=== PATIENT | female | born 1960 | race African-American/Black ===

== ENCOUNTER 2022-05-31 04:43 | Inpatient (IN) | payer OTHER ==
[~2022-05-31] VITALS: Ht 167.6 cm; Wt 144.0 kg
[2022-05-31 05:43] LABS: Basophils # (auto) 0 10 ^3/uL (0-0.2); Basophils % (auto) 0.2 % (0.0-2.0); Eosinophils # (auto) 0 10 ^3/uL (0-0.8); Eosinophils % (auto) 0.1 % (0.0-7.0); Hematocrit 37.2 % (36.0-46.0); Hemoglobin 11.9 g/dL (12.2-16.2); Lymphocytes # (auto) 0.6 10 ^3/uL (0.4-5.4); Lymphocytes % (auto) 7.1 % (10.0-50.0); Mean Corpuscular Hemoglobin 26.1 pg (28.0-32.0); Mean Corpuscular Hgb Conc. 31.9 g/dL (32.0-36.0); Mean Corpuscular Volume 81.8 fL (80.0-100.0); Monocytes # (auto) 0.4 10 ^3/uL (0-1.3); Monocytes % (auto) 4.3 % (0.0-12.0); Neutrophils % (auto) 88.3 % (37.0-80.0); Red Blood Cells 4.54 10^6/uL (4.0-5.20); Red Cell Distribution Width 15.8 % (11.8-14.3); White Blood Cell 9.1 10^3/uL (4.4-10.8)
[2022-05-31] MEDS ORDERED: FUROSEMIDE 20 MG/2 ML VIAL IV ONE (05:45)
[2022-05-31 05:58] LABS: Albumin 3.5 g/dL (3.4-5.0); Calcium 9.3 mg/dL (8.5-10.1); Magnesium 2.1 mg/dL (1.6-2.6); Potassium 3.5 mmol/L (3.5-5.1)
[2022-05-31 06:04] LABS: Bilirubin, Total 0.9 mg/dL (0.2-1.0); Total Protein 7.3 g/dL (6.4-8.2)
[2022-05-31 06:13] LABS: INR 1.08 (0.9-1.15); Partial Thromboplastin Time 26.8 sec (24.6-33.4)
[2022-05-31] MEDS ORDERED: VANCOMYCIN 1GM/250ML 250 ML IV ONE (06:15)
[2022-05-31] MEDS ORDERED: PIPERACILLIN-TAZOB 3.375GM 100 ML IV ONE (06:15)
[2022-05-31 07:37] LABS: Urine Bacteria MANY /hpf (None Seen); Urine Blood 3+ /uL (Negative); Urine Hyaline Cast MOD /lpf (0 - 2); Urine Mucus FEW (None Seen); Urine Specific Gravity 1.016 (1.001-1.035); Urine WBC 4186 /hpf (0 - 5); Urine WBC Clumps PRESENT /hpf (None Seen)
[2022-05-31] MEDS ORDERED: FUROSEMIDE 40 MG/4 ML VIAL IV ONE (08:00)
[2022-05-31] MEDS ORDERED: IOHEXOL 350 MG/ML 100ML IJ ONE (09:21)
[2022-05-31] MEDS ORDERED: NITROGLYCERIN 0.4 MG SL TAB SL PRN (09:30)
[2022-05-31] MEDS ORDERED: LORazepam 0.5 MG TAB PO PRN (09:30)
[2022-05-31] MEDS ORDERED: HYDROcodone-ACET 5/325MG TAB PO PRN (09:30)
[2022-05-31] MEDS ORDERED: HYDROmorphone HCL 2 MG/ML VL/or syr IV PRN (09:30)
[2022-05-31] MEDS ORDERED: DOCUSATE SOD 100 MG CAP PO PRN (09:30)
[2022-05-31] MEDS ORDERED: ALUM & MAG HYDROX-SIMETH LIQ(MAALOX) 30 ML PO PRN (09:30)
[2022-05-31 10:03] VITALS: BP 149/82
[2022-05-31] MEDS ORDERED: ENOXAPARIN SOD 150 MG/1 ML SYRINGE SC ONE (10:15)
[2022-05-31] MEDS: levoFLOXacin 750MG 150 ML IV SCH (10:28)
[2022-05-31] MEDS: IPRATROPIUM BROM 0.5 MG/2.5ML INH SOL NEB SCH ×2 (11:49→18:36)
[2022-05-31] MEDS: LEVALBUTEROL HCL 1.25 MG/3 ML NEB NEB SCH ×2 (11:50→18:38)
[2022-05-31] MEDS ORDERED: ACETAMINOPHEN 650 mg PER 20.3 mL UD ONE (12:18)
[2022-05-31] MEDS: ACETAMINOPHEN 650 mg PER 20.3 mL UD PO PRN ×2 (12:27→21:03)
[2022-05-31] MEDS: SODIUM CHLOR 0.9% PF (SALINE LOCK) 10ML VIAL/SYR IV SCH ×2 (14:04→22:27)
[2022-05-31] MEDS: FUROSEMIDE 40 MG/4 ML VIAL IV SCH (18:03)
[2022-05-31] MEDS: MORPHINE SULFATE INJ 2 MG/ml SYRG IV PRN (21:07)
[2022-05-31] MEDS ORDERED: ACETAMINOPHEN 650 MG RECT SUPP PR ONE (21:30)
[2022-05-31] MEDS ORDERED: ACETAMINOPHEN 325 MG RECT SUPP PR ONE (21:42)
[2022-05-31] MEDS: ENOXAPARIN SOD 150 MG/1 ML SYRINGE SC SCH (22:35)
[2022-06-01] MEDS: IPRATROPIUM BROM 0.5 MG/2.5ML INH SOL NEB SCH ×4 (00:15→17:59)
[2022-06-01] MEDS: LEVALBUTEROL HCL 1.25 MG/3 ML NEB NEB SCH ×4 (00:15→17:59)
[2022-06-01] MEDS ORDERED: dilTIAZem 25 MG/5 ML VIAL IV ONE (05:30)
[2022-06-01 05:35] LABS: Basophils # (auto) 0 10 ^3/uL (0-0.2); Eosinophils # (auto) 0 10 ^3/uL (0-0.8); Hemoglobin 11.7 g/dL (12.2-16.2); Mean Corpuscular Volume 80.5 fL (80.0-100.0); Monocytes # (auto) 0.6 10 ^3/uL (0-1.3); Monocytes % (auto) 7.8 % (0.0-12.0); Neutrophils # (auto) 6.4 10 ^3/uL (1.6-8.6); Nucleated Red Blood Cells % 0.1 %
[2022-06-01 05:36] LABS: Basophils % (auto) 0.3 % (0.0-2.0); Hematocrit 36.9 % (36.0-46.0); Lymphocytes # (auto) 0.8 10 ^3/uL (0.4-5.4); Lymphocytes % (auto) 10.7 % (10.0-50.0); Mean Corpuscular Hemoglobin 25.5 pg (28.0-32.0); Mean Corpuscular Hgb Conc. 31.7 g/dL (32.0-36.0); Neutrophils % (auto) 81.2 % (37.0-80.0); Red Blood Cells 4.58 10^6/uL (4.0-5.20); Red Cell Distribution Width 15.5 % (11.8-14.3); White Blood Cell 7.8 10^3/uL (4.4-10.8)
[2022-06-01 05:47] LABS: Albumin 3.3 g/dL (3.4-5.0); Calcium 9.1 mg/dL (8.5-10.1); Magnesium 2.2 mg/dL (1.6-2.6)
[2022-06-01 05:52] LABS: BUN/Creatinine Ratio 12.1; Bilirubin, Total 1.1 mg/dL (0.2-1.0); Total Protein 7.3 g/dL (6.4-8.2)
[2022-06-01 05:57] LABS: Potassium 2.6 mmol/L (3.5-5.1)
[2022-06-01] MEDS: FUROSEMIDE 40 MG/4 ML VIAL IV SCH ×2 (06:00→18:13)
[2022-06-01] MEDS: SODIUM CHLOR 0.9% PF (SALINE LOCK) 10ML VIAL/SYR IV SCH ×3 (06:21→21:46)
[2022-06-01] MEDS: POTASSIUM CHL 20MEQ/100ML 100 ML IV SCH ×3 (07:02→23:44)
[2022-06-01] MEDS ORDERED: POTASSIUM CHL 20 Meq TABLET PO ONE (07:04)
[2022-06-01] MEDS ORDERED: ACETAMINOPHEN IV 1000 MG/100ML (10MG/ML) IV ONE (08:30)
[2022-06-01] MEDS: ENOXAPARIN SOD 150 MG/1 ML SYRINGE SC SCH ×2 (10:21→21:47)
[2022-06-01] MEDS: ONDANSETRON HCL 4 MG/2 ML VIAL IV PRN (10:22)
[2022-06-01] MEDS: levoFLOXacin 750MG 150 ML IV SCH (10:22)
[2022-06-01] MEDS: ACETAMINOPHEN 650 mg PER 20.3 mL UD PO PRN (20:12)
[2022-06-02] MEDS: POTASSIUM CHL 20MEQ/100ML 100 ML IV SCH (01:33)
[2022-06-02] MEDS ORDERED: LABETALOL HCL 5 MG/ML 4ML SYRINGE IV ONE (02:00)
[2022-06-02] MEDS: ACETAMINOPHEN 650 mg PER 20.3 mL UD PO PRN ×2 (02:39→10:14)
[2022-06-02] MEDS: IPRATROPIUM BROM 0.5 MG/2.5ML INH SOL NEB SCH ×4 (05:25→19:51)
[2022-06-02] MEDS: LEVALBUTEROL HCL 1.25 MG/3 ML NEB NEB SCH ×4 (05:25→19:51)
[2022-06-02] MEDS: SODIUM CHLOR 0.9% PF (SALINE LOCK) 10ML VIAL/SYR IV SCH ×3 (05:32→21:02)
[2022-06-02] MEDS: FUROSEMIDE 40 MG/4 ML VIAL IV SCH ×2 (05:53→18:29)
[2022-06-02 06:31] LABS: Basophils # (auto) 0 10 ^3/uL (0-0.2); Eosinophils # (auto) 0 10 ^3/uL (0-0.8); Monocytes # (auto) 0.6 10 ^3/uL (0-1.3); Neutrophils # (auto) 3.7 10 ^3/uL (1.6-8.6); Nucleated Red Blood Cells % 0.1 %; Red Cell Distribution Width 15.7 % (11.8-14.3); White Blood Cell 5.4 10^3/uL (4.4-10.8)
[2022-06-02 06:34] LABS: Basophils % (auto) 0.2 % (0.0-2.0); Eosinophils % (auto) 0.4 % (0.0-7.0); Hematocrit 34.9 % (36.0-46.0); Hemoglobin 11.3 g/dL (12.2-16.2); Lymphocytes % (auto) 18.2 % (10.0-50.0); Mean Corpuscular Hemoglobin 26.7 pg (28.0-32.0); Mean Corpuscular Hgb Conc. 32.3 g/dL (32.0-36.0); Mean Corpuscular Volume 82.6 fL (80.0-100.0); Monocytes % (auto) 11.9 % (0.0-12.0); Neutrophils % (auto) 69.3 % (37.0-80.0); Red Blood Cells 4.23 10^6/uL (4.0-5.20)
[2022-06-02 06:47] LABS: Anion Gap 8 (5-15); Blood Urea Nitrogen 12 mg/dL (7-18); Calcium 8.7 mg/dL (8.5-10.1); Carbon Dioxide 29 mmol/L (21-32); Chloride 101 mmol/L (98-107); GFR African American 93 mL/min; GFR Non-African American 77 mL/min; Glucose 90 mg/dL (74-106); Magnesium 2.1 mg/dL (1.6-2.6); Potassium 3.1 mmol/L (3.5-5.1); Sodium 138 mmol/L (136-145)
[2022-06-02] MEDS: levoFLOXacin 750MG 150 ML IV SCH (10:13)
[2022-06-02] MEDS: ENOXAPARIN SOD 150 MG/1 ML SYRINGE SC SCH (10:13)
[2022-06-02] MEDS: SPIRONOLACTONE 25 MG TAB PO SCH (13:45)
[2022-06-02] MEDS ORDERED: POTASSIUM CHL 20 Meq TABLET PO ONE (14:45)
[2022-06-02] MEDS: ONDANSETRON HCL 4 MG/2 ML VIAL IV PRN (15:34)
[2022-06-02] MEDS: MORPHINE SULFATE INJ 2 MG/ml SYRG IV PRN (15:34)
[2022-06-02 22:00] VITALS: BP 165/95
[2022-06-02] MEDS ORDERED: CYCL-611 PO (22:03)
[2022-06-02] MEDS ORDERED: CELE1CAP8 PO (22:03)
[2022-06-02] MEDS ORDERED: FURO40TA4 PO (22:03)
[2022-06-02] MEDS ORDERED: CARV12.544 PO (22:03)
[2022-06-02] MEDS ORDERED: SIMV-8 PO (22:03)
[2022-06-02] MEDS ORDERED: MELO1TAB56 PO (22:03)
[2022-06-02] MEDS ORDERED: TRAM50TA2 PO (22:03)
[2022-06-02] MEDS ORDERED: ISOS1TAB28 PO (22:03)
[2022-06-02] MEDS ORDERED: BUME2TAB5 PO (22:03)
[2022-06-02] MEDS ORDERED: ONDA-180 PO (22:04)
[2022-06-02] MEDS ORDERED: POTA1TAB64 (22:04)
[2022-06-02] MEDS ORDERED: CHOL50007 PO (22:04)
[2022-06-02] MEDS ORDERED: NIT01P TOP (22:04)
[2022-06-03] MEDS: LEVALBUTEROL HCL 1.25 MG/3 ML NEB NEB SCH ×4 (00:32→18:58)
[2022-06-03] MEDS: IPRATROPIUM BROM 0.5 MG/2.5ML INH SOL NEB SCH ×4 (00:32→18:58)
[2022-06-03 05:00] VITALS: BP 154/85
[2022-06-03] MEDS: FUROSEMIDE 40 MG/4 ML VIAL IV SCH ×2 (05:56→18:27)
[2022-06-03] MEDS: SODIUM CHLOR 0.9% PF (SALINE LOCK) 10ML VIAL/SYR IV SCH ×3 (05:56→22:00)
[2022-06-03 06:22] LABS: BUN/Creatinine Ratio 13.3; Calcium 9.1 mg/dL (8.5-10.1); Potassium 3.1 mmol/L (3.5-5.1)
[2022-06-03] MEDS ORDERED: POTASSIUM CHL 20 Meq TABLET PO ONE ×2 (07:30→11:30)
[2022-06-03 08:44] VITALS: BP 154/85
[2022-06-03 09:00] VITALS: BP 160/91
[2022-06-03] MEDS: levoFLOXacin 750MG 150 ML IV SCH (10:08)
[2022-06-03] MEDS: SPIRONOLACTONE 25 MG TAB PO SCH (10:08)
[2022-06-03 13:00] VITALS: BP 139/85
[2022-06-03 17:09] VITALS: BP 162/105
[2022-06-03 22:00] VITALS: BP 160/96
[2022-06-04] MEDS: LEVALBUTEROL HCL 1.25 MG/3 ML NEB NEB SCH ×4 (00:30→18:48)
[2022-06-04] MEDS: IPRATROPIUM BROM 0.5 MG/2.5ML INH SOL NEB SCH ×4 (00:31→18:48)
[2022-06-04 05:00] VITALS: BP 156/93
[2022-06-04 06:01] LABS: BUN/Creatinine Ratio 12.4; Calcium 9.6 mg/dL (8.5-10.1); Potassium 3.3 mmol/L (3.5-5.1)
[2022-06-04] MEDS: SODIUM CHLOR 0.9% PF (SALINE LOCK) 10ML VIAL/SYR IV SCH ×2 (06:34→15:06)
[2022-06-04] MEDS: FUROSEMIDE 40 MG/4 ML VIAL IV SCH ×2 (06:34→18:00)
[2022-06-04 07:30] VITALS: BP 156/93
[2022-06-04 09:00] VITALS: BP_SYST 145; BP_SYST 177; BP_DIAS 105
[2022-06-04] MEDS: SPIRONOLACTONE 25 MG TAB PO SCH (09:24)
[2022-06-04] MEDS: levoFLOXacin 750MG 150 ML IV SCH (09:24)
[2022-06-04 13:00] VITALS: BP 169/105
[2022-06-04] MEDS ORDERED: SPIR50TA2 PO (14:54)
[2022-06-04] MEDS ORDERED: CIPR-173 PO (14:54)
[2022-06-04 16:06] VITALS: BP 156/93
== END 2022-06-04 18:00 | disposition home or self-care (01) | DRG 280 ==
LOC: EDBD 04:43 → ER 04:43 → TELE 09:34 → TELE-CENTR 06-02 18:50
PROVIDERS: ADMIT Internal Medicine; ATTEND Internal Medicine Geriatric Medicine
DX: I21.4 Non-ST elevation (NSTEMI) myocardial infarction (principal); I50.43 Acute on chronic combined systolic (congestive) and diastolic (congestive) heart failure; J96.01 Acute respiratory failure with hypoxia; N39.0 Urinary tract infection, site not specified; Z68.44 Body mass index [BMI] 60.0-69.9, adult; J98.11 Atelectasis; R31.9 Hematuria, unspecified; R79.89 Other specified abnormal findings of blood chemistry; Z20.822 Contact with and (suspected) exposure to COVID-19; E66.01 Morbid (severe) obesity due to excess calories; E87.6 Hypokalemia; Z91.14 Patient's other noncompliance with medication regimen
CPT/HCPCS: 36415; 36600; 71045; 80048; 80053; 81001; 82805; 83036; 83605; 83735; 83880; 84132; 84443; 84484; 85025; 85379; 85610; 85730; 93005; 93306; 93970; 94640; 96365; 96366; 96367; 96368; 96372; 96375; 96376; G0378; J0131; J1956; J2405; J2543; J3480; J3490